=== PATIENT | female | born 1975 | race Hispanic/Latino ===

== ENCOUNTER 2017-09-16 09:14 | Day surgery (SDC) | payer BC ==
[2017-09-15 11:57] VITALS: BMI 21.9
[2017-09-16] MEDS ORDERED: Lactated Ringer's 1,000 ML IV ONE ×4 (10:02→15:25)
[2017-09-16 10:39] LABS: HEMOGLOBIN 12.2 g/dL (12.0-16.0); MEAN CELL VOLUME 88.2 fl (81.0-99.0); MEAN CORPUSCULAR HEMOGLOBIN 29.2 pg (27.0-31.0); MEAN CORPUSCULAR HGB CONC 33.1 g/dL (33.0-37.0); RBC 4.18 Mil/uL (3.80-5.20); RED CELL DISTRIBUTION WIDTH 15.8 % (11.5-14.5); WHITE BLOOD COUNT 6.1 K/uL (4.8-10.8)
[2017-09-16] MEDS ORDERED: Rocuronium 10 mg/ml (5 ml) ONE (10:56)
[2017-09-16] MEDS ORDERED: Propofol 10 mg/ml Inj (20 ML) ONE (10:56)
[2017-09-16] MEDS ORDERED: Bupivacaine HCl 0.5% PF (30 ml) Inj ONE (11:09)
[2017-09-16] MEDS ORDERED: Dexamethasone 4 mg/1 ml ONE (11:16)
[2017-09-16] MEDS ORDERED: Midazolam 2 MG/2 ML VIAL ONE (11:57)
[2017-09-16] MEDS ORDERED: Neostigmine 1:1000 (1 mg/ml) Inj ONE (11:58)
[2017-09-16] MEDS ORDERED: Sodium Chloride 0.45% 1,000 ML IV ONE (12:55)
[2017-09-16] MEDS ORDERED: Morphine 1 mg/ml preservative-free Inj(Duramorph) ONE (13:54)
[2017-09-16] MEDS ORDERED: Desflurane Inhalation Anesthetic Liq (240 ml) ONE (14:04)
[2017-09-16] MEDS ORDERED: HYDROmorphone 0.5 mg/0.5 ml ISec IVP PRN (14:32)
[2017-09-16] MEDS ORDERED: Oxycodone/Acetaminophen 5/325 mg Tab PO PRN (14:39)
--- NOTE | 2017-09-16 14:41 | PCM.SURG1 ---
Surgeon's Initial Post Op Note - Surgeon's Notes Surgeon: Stacie Mary Chief Medical Technologist: [id number] Type of Anesthesia: General Endo, Local Pre-Operative Diagnosis: Endometriosis Operative Findings: Endometriosis Post-Operative Diagnosis: Endometriosis Operation Performed: Robotic endometrectomy, hysteroscopy, cystoscopy, insertion of bilateral ureteral stents, injection of dye Specimen/Specimens Removed: Endometriosis with peritoneum Estimated Blood Loss: EBL {In ML}: 10 Blood Products Given: N/A Drains Used: No Drains Post-Op Condition: Good Date of Surgery/Procedure: 09/16/17 Time of Surgery/Procedure: 13:00
[2017-09-16 15:39] VITALS: RESP 18
[2017-09-16 18:54] VITALS: TEMP 98.4
[2017-09-16 19:38] VITALS: BP 110/66; PULSE 84; O2SAT 97
--- NOTE | 2017-09-28 08:57 | PCM.OP ---
Operative Report - Operative Report Date of Surgery/Procedure: 09/16/17 Time of Surgery/Procedure: 14:00 Surgeon: Dr. Martin Quinones Salesperson Fashion Accessories: Dr. Sudarshan Mary Anesthesia/Sedation: general/Dr. Carrillo Pre-Operative Diagnosis: abdominal pain and endometriosis Post-Operative Diagnosis: perirectal involvement Indication for Surgery: as above Operative Findings: as above Procedure/Operation Description: 1-Excision perirectal endometriosis (times two) . Brief History: This 42 year old woman was brought to the operating room by Dr. Mary when he noted perirectsal involvement of endometriosis and intraoperative consultation was requested. Description of the Procedure: Dr. Mary ahd already initiate the robotic procedure (separate dictsiton Dr. Mary ). After taking control of the robotic console the areas in question were examined under videoscope. The first perirectal lesion was incised circunferentially with electrocautery and with blunt and sharp dissction it was lifted from the rectum and sent topathology separately. The second lesion was removed in a similar manner and sent to patholgy separately as well. Hemostasis was deem,ed adequate and the operation was then turned over to Dr. Mary ( separate dictation Dr. Mary). Estimated Blood Loss: 5 cc Complications: none Specimen: perirectal lesions (times two) Discharge & Condition: stable
--- NOTE | 2017-09-28 21:05 | OP ---
PROCEDURE DATE: 09/16/2017 PREOPERATIVE DIAGNOSES: Dyspareunia, dysmenorrhea, pelvic pain, and rule out endometriosis. POSTOPERATIVE DIAGNOSES: Pelvic endometriosis plus dyspareunia, dysmenorrhea, pelvic pain, and rule out endometriosis. PROCEDURE PERFORMED: Cystoscopy with bilateral ureteral catheterization,and ureteral injection of icgreen dye diagnostic hysteroscopy, robotic da Irvin operative laparoscopy, excision of endometriosis, bilateral ureterolysis, and excision of perirectal mass performed by Dr. Quinones from General Surgery. SURGEON: Sudarshan Mary MD MEDICAL RADIATION THERAPIST: Martin Quinones MD TYPE OF ANESTHESIA: General endotracheal. ESTIMATED BLOOD LOSS: Minimal. COMPLICATIONS: None. SPECIMEN: Multiple samples containing endometriosis obtained from the left periureteral, posterior cervical, perirectal left and right areas, periureteral and uterosacral areas. INDICATION FOR THE PROCEDURE: This patient is a 42-year-old with a history of dysmenorrhea and dyspareunia who resists to medical therapy. Upon examination in the office, acute tenderness was identified on examination. Based on this fact, the patient was counseled with regards to risks and benefits of the surgery. She opted to move forward with the surgery. All risks and benefits were discussed including, but not limited to bowel or bladder injury and bleeding. She signed the consented and she was taken to the OR. DESCRIPTION OF PROCEDURE: After adequate anesthesia was obtained, the patient was placed in dorsal lithotomy position with extreme care to pad every area prone to potential pressure. Also extreme attention was placed in making sure that the patient's hips were not hyperextend or hyperflexed. At this point, a time-out was taken according to the hospital policy and the procedure was started. A cystoscope was inserted into the bladder under direct visualization and the bladder appeared to be normal shape without any evidence of tumors or lesions. Both ureteral ostia were in the normal anatomical position, they were catheterized utilizing 5-American open-ended stent all the way to the distal ureter in the left-hand side where 5 mL of IC-Green were injected and then after removing the stent on the right-hand side where actually another 5 mL of IC-Green were injected into the distal ureter. At this point, a cystoscope was removed and it was replaced by 16-American Kelly. At this point, attention was on the vaginal area, weighted speculum was placed in the vagina. The anterior lip of the cervix was grasped and the cervix was gently dilated. The hysteroscope was inserted into the uterine cavity and the uterine cavity was visualized and appeared to be normal with normal peritubal openings bilaterally. At this point, attention was on the abdomen where an open laparoscopy was performed according to standard procedure. Entering the abdominal cavity in the blunt fashion under direct visualization, three additional ports were placed, were obtained left upper quadrant, right upper quadrant, and left mid quadrant. The da Irvin Xi robot was docked and the procedure was started. The findings revealed presence of multiple endometriotic lesions in the pelvic sidewalls both on the right and left hand side of the pelvis as well in the cul-de-sac and in the perirectal area. Procedure first commenced on the left hand side where after entering the retroperitoneum at the pelvic rim, the ureter was identified utilizing fluorescent technology and progressively dissected out. peritoneum containing endometriosis was then dissected with the upper limit of the dissection being the utero-ovarian ligament and the lower limit of uterosacral ligament and the anterior limit of the ovarian fossa. Attention then was in the posterior cervix, a transverse incision was made along the posterior cervix and then the rectovaginal space was dissected off and progressively space opened up and an area of peritoneum-containing endometriosis was dissected. Attention then was on the right hand side of the pelvis where the peritoneum was then again entered. The ureter was identified utilizing fluorescent Firefly technology. The retroperitoneal space was then entered, ureter was followed through and peritoneum was then medialized and then area of peritoneum-containing endometriosis was then excised. In the right ovarian fossa, additionally more peritoneum-containing endometriosis was also excised. There were also lesions in the perirectal area, which were also identified, Dr. Quinones from General Surgery was called in and he helped to excise those lesions. The posterior aspect of the uterus at patina of inflammatory-type lesion, which was not endometriotic, but showed clear sign of inflammation. This was ablating utilizing plasma energy. At this point, he will check for hemostasis and appeared to be excellent and all the organs were in perfect condition. The da Irvin robot was undocked. The abdomen was insufflated. The instruments were removed. The incision were closed in layers with 0 PDS for the fascia and 4-0 Monocryl for the skin. At the end of the procedure, all tapes and instruments were correct. The patient tolerated the procedure well and was taken to recovery room in excellent condition. Sudarshan Mary MD MTDNorah
== END 2017-09-16 19:50 | disposition home or self-care (01) ==
LOC: H.OPSURG 09:14
PROVIDERS: ATTEND Obstetrics & Gynecology Reproductive Endocrinology
DX: N80.0 Endometriosis of uterus (principal); R10.2 Pelvic and perineal pain; N94.6 Dysmenorrhea, unspecified; N94.10 Unspecified dyspareunia; N80.5 Endometriosis of intestine
CPT/HCPCS: 36415; 45171; 58558; 58662; 85027; 86850; 86900; 88305; C1729; J0690; J1100; J1720; J1885; J2001; J2250; J2270; J2704; J2710; J2765; J3010; J7030; J7040; J7120